=== PATIENT | female | born 1935 | race African-American/Black ===

== ENCOUNTER 2018-01-17 12:54 | Emergency (ER) | payer MEDICARE, BC ==
[~2018-01-17] VITALS: Ht 162.6 cm; Wt 84.0 kg
[~2018-01-17 12:54] MED LIST: CELE200C PO; FERR-63 PO; HYDR-3513 PO; LISINOPRIL; MIRT45TA PO; OMEP10CA4 PO; POTA99TA4 PO; PREG100C PO
[2018-01-17] MEDS ORDERED: ACETAMINOPHEN WITH CODEINE 300/30MG TABLET PO ONE (14:15)
[2018-01-17 15:56] VITALS: BP 128/73
== END 2018-01-17 16:37 | disposition home or self-care (01) ==
LOC: ER 13:39
DX: M54.5 Low back pain (principal); M25.551 Pain in right hip; M17.11 Unilateral primary osteoarthritis, right knee; I10 Essential (primary) hypertension; M54.30 Sciatica, unspecified side; Z88.0 Allergy status to penicillin; Z88.2 Allergy status to sulfonamides; W19.XXXA Unspecified fall, initial encounter; Y93.89 Activity, other specified; Y92.89 Other specified places as the place of occurrence of the external cause; Y99.8 Other external cause status
CPT/HCPCS: 72100; 73521; 73552; 99284